=== PATIENT | female | born 1960 | race Caucasian/White ===

== ENCOUNTER 2019-07-27 10:09 | Day surgery (SDC) | payer OTHER ==
[2019-07-27] MEDS ORDERED: fentaNYL 250 MCG/5 ML VIAL IVP ONE (10:10)
[2019-07-27] MEDS ORDERED: MIDAZOLAM 2 MG/2 ML VIAL IVP ONE (10:10)
[2019-07-27] MEDS ORDERED: LACTATED RINGERS 1,000 ML IV ONE ×2 (10:49→11:13)
[2019-07-27 12:44] VITALS: BP 110/65
== END 2019-07-27 10:10 | disposition home or self-care (01) ==
LOC: SDS 10:09
PROVIDERS: ATTEND Internal Medicine Gastroenterology
PROC: 0DJD8ZZ Inspection of Lower Intestinal Tract, Via Natural or Artificial Opening Endoscopic (ICD-10-PCS; principal; 2019-07-27 11:30)
DX: Z12.11 Encounter for screening for malignant neoplasm of colon (principal); Z80.0 Family history of malignant neoplasm of digestive organs
CPT/HCPCS: 45378; J3010; J7120

== ENCOUNTER 2020-01-28 11:21 | Outpatient (CLI) | payer OTHER ==
--- NOTE | 2020-01-29 08:53 | XRAY Report ---
PROCEDURE: Foot 3 View LT INDICATIONS: LEFT FOOT PAIN TECHNIQUE: 3 views of the foot were acquired. COMPARISON: None FINDINGS: Bones: No fractures or dislocations. No suspicious bony lesions. Soft tissues: No tibiotalar joint effusion. Achilles tendon appears normal. IMPRESSION: No visualized acute fracture or dislocation. However, occult injury cannot be excluded. Recommend janes rt interval imaging follow-up in 7-10 days as clinically indicated for additional evaluation. Reviewed by: Madyson Lezama MD on 01/28/2020 1:11 PM PDT Approved by: Madyson Lezama MD on 01/28/2020 1:11 PM PDT Station ID: [id number]
== END 2020-01-28 23:59 | disposition home or self-care (01) ==
LOC: DI.WCP 11:21
PROVIDERS: ATTEND Family Medicine
DX: S99.922A Unspecified injury of left foot, initial encounter (principal); R60.0 Localized edema; Q66.89 Other specified congenital deformities of feet

== ENCOUNTER 2023-05-27 13:44 | Outpatient (CLI) | payer OTHER ==
--- NOTE | 2023-05-27 16:30 | XRAY Report ---
PROCEDURE: Sacrum/Coccyx INDICATIONS: SACRAL BACK PAIN TECHNIQUE: 2 views of the sacrum and coccyx acquired. COMPARISON: None. FINDINGS: Bones: No fractures or dislocations. There is grade 1 anterolisthesis of L5 on S1 with appearance of pars defect at L5 5. Severe disc and foraminal narrowing are present L5-S1. Soft tissues: Visualized bowel gas pattern is normal. No suspicious soft tissue densities. 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 Reviewed by: Madyson Lezama MD on 05/27/2023 4:28 PM PST Approved by: Madyson Lezama MD on 05/27/2023 4:28 PM PST Station ID: [id number]
== END 2023-05-27 13:45 | disposition home or self-care (01) ==
LOC: DI.N 13:44
PROVIDERS: ATTEND Nurse Practitioner
DX: M47.817 Spondylosis without myelopathy or radiculopathy, lumbosacral region (principal)

== ENCOUNTER 2023-07-15 12:36 | Outpatient (CLI) | payer OTHER ==
--- NOTE | 2023-07-15 14:02 | DEXA Report ---
PROCEDURE: Dexa Spine and/or Hip INDICATIONS: SCREENING FOR OSTEOPOROSIS TECHNIQUE: Dual energy x-ray absorptiometry (DXA) was performed on a [employer] System. Regions measur ed are the AP Spine, femoral neck, and if needed forearm. COMPARISON: None FINDINGS: Lumbar Spine: Bone Mineral Density 0.926 g/cm/cm,T score -2.1. Left Femoral Neck: Bone Mineral Density 0.751 g/cm/cm, T score -2.1. Left Hip: Bone Mineral Density 0.774 g/cm/cm,T score -1.9. (T score greater or equal to -1.0: NORMAL) (T score from -1.1 to -2.4: OSTEOPENIA) (T score less than or equal to -2.5 to: OSTEOPOROSIS) Impression: By WHO criteria, this patient has low Patients with diagnosis of osteoporosis or osteopenia should have regular bone mineral density assess ment. For those eligible for Medicare, routine testing is allowed once every 2 years. Testing frequ ency can be increased for patients who have rapidly progressing disease or for those who are receivin g medical therapy to restore bone mass. Reviewed by: Tello Robledo MD on 07/15/2023 2:01 PM PST Approved by: Tello Robledo MD on 07/15/2023 2:01 PM PST Station ID: [id number]
== END 2023-07-15 12:37 | disposition home or self-care (01) ==
LOC: DI 12:36
PROVIDERS: ATTEND Nurse Practitioner
DX: Z13.820 Encounter for screening for osteoporosis (principal); M85.89 Other specified disorders of bone density and structure, multiple sites